=== PATIENT | female | born 1960 | race Caucasian/White ===

== ENCOUNTER 2017-01-18 11:41 | Day surgery (SDC) | payer BC ==
[~2017-01-18] VITALS: Ht 162.6 cm; Wt 62.7 kg
[~2017-01-18 11:41] MED LIST: AMBIEN5 MG PO; ATIVAN1 MG PO; CARAFATE1 G PO; CELEXA10 MG PO; CLEOCIN HCL150 MG PO; DEXILANT60 MG; HYDROCODON-ACE1 EAC7 PO; LISINOPRIL5 MG PO; NICODERM C1 PATCH .3 TRANSDERM; NORCO 5/325 TAB1 TA1 PO; OXYCONTIN10 MG; PEPCID20 MG PO; PERCOCET 10/3251 TA1 PO; ROBAXIN500 MG PO; STERAPRED 5MG 65 M1 PO
[2017-01-18 12:28] LABS: HEMATOCRIT 41.7 % (36.0-48.0); HEMOGLOBIN 13.1 g/dL (12-16); MCHC 31.4 g/dL (31.0-37.0); MEAN PLATELET VOLUME 10.1 fL (7.4-10.4); PLATELET COUNT 71 10x3/uL (130-400); RBC 3.97 10x6/uL (4.00-5.40); RDW 14.3 % (11.5-14.5); WBC 2.7 10x3/uL (4.8-10.8)
[2017-01-18 12:44] LABS: CALC OSMOLALITY 290 mosm/kg (275-300); CALCIUM 8.6 mg/dL (8.5-10.1); CARBON DIOXIDE 34.8 mmol/L (21.0-32.0); CHLORIDE - SERUM 107 mmol/L (98-107); CREATININE - SERUM 0.7 mg/dL (0.6-1.3); GLUCOSE 93 mg/dL (74-106); POTASSIUM - SERUM 3.8 mmol/L (3.5-5.1); SODIUM 147 mmol/L (136-145); UREA NITROGEN 10 mg/dL (7-18); eGFR NON AFRICAN AMERICAN > 90 mL/min (90-120)
[2017-01-18 13:02] LABS: ANISOCYTOSIS OCC; BASOPHILS 1 % (0.0-2.0); EOSINOPHILS 1 % (0-7); LYMPHOCYTES 34 % (15-50); MONOCYTES 5 % (2-11); NEUTROPHILS 56 % (40-80)
[2017-01-18 13:03] LABS: PLATELET ESTIMATE DECREASED
[2017-01-18 13:14] VITALS: BP 122/79; Ht 162.6 cm; Wt 62.7 kg
--- NOTE | 2017-01-18 13:17 | NUR ---
1245-IV SITED TO [facility] X 1 22G ANGIOCATH. SITE WITHOUT REDNESS OR SWELLING.
[2017-01-18] MEDS ORDERED: PROTONIX40 MG PO (13:21)
--- NOTE | 2017-01-24 12:04 | OP ---
PATIENT NAME: JOSSY LOFTON MEDICAL RECORD: [id number] :62 LOCATION:D.OPS ADMISSION DATE: SURGEON: KRISTOPHER HERNANDEZ DO DATE OF OPERATION: 01/18/2017 SCOPE: Olympus video colonoscope. MEDICATIONS: Propofol 350 mg IV per anesthesia. PROCEDURE: Colonoscopy. INDICATIONS FOR PROCEDURE: Personal history of colonic polyps. FINDINGS: Informed consent was given. The patient was made comfortable with the above medication. After reaching an adequate level of sedation by slow IV push, the patient was placed on the left side. The colonoscope was then advanced under direct visualization through the rectum to the cecum. There were multiple mixed small and wide-mouthed diverticula present in the sigmoid colon and descending colon. The sigmoid colon was significantly redundant making passage of the endoscope slightly difficult. There seemed to be some adhesive disease surrounding that segment of bowel. The scope was able to reach the cecum in its entirety. The scope was then slowly withdrawn over a period of 7 minutes. There were no polyps or other abnormalities visualized on the examination. Scope was withdrawn from the patient. The patient tolerated this procedure well and there were no complications. ESTIMATED BLOOD LOSS: Zero. IMPRESSION: 1. Diverticulosis of the descending and sigmoid colon of moderate to severe severity. 2. Adhesive disease. PLAN AND RECOMMENDATIONS: 1. Discharge home when recovery parameters are met. 2. Continue high fiber diet. 3. Continue current medications. 4. Repeat colonoscopy in 5-7 years. TRANSINT:[id number] Voice Confirmation ID: [id number] DOCUMENT ID: [id number] KRISTOPHER EHRNANDEZ DO at 1204 CC: [id number] DICTATION DATE: 01/18/17 1515 COMMERCIAL ASSISTANT: 01/19/17 0027 [facility] 01/18/17 [place] [id number] [place] [id number]
== END 2017-01-18 16:06 | disposition home or self-care (01) ==
LOC: D.OPS 11:41
PROVIDERS: Anesthesiology
DX: K57.30 Diverticulosis of large intestine without perforation or abscess without bleeding (principal); Z86.010 Personal history of colon polyps

== ENCOUNTER → 2017-03-08 12:55 | Outpatient (CLI) | payer BC ==
[2017-01-18 13:14] VITALS: BMI 23.7
[~2017-03-08 12:55] MED LIST changes: +PROTONIX40 MG PO
== END | disposition home or self-care (01) ==
LOC: D.CT 12:55
DX: R10.84 Generalized abdominal pain (principal)